=== PATIENT | female | born 1950 | race Caucasian/White ===

== ENCOUNTER 2017-07-02 16:04 | Emergency (ER) | payer OTHER ==
[~2017-07-02] VITALS: Ht 167.6 cm; Wt 90.3 kg
[~2017-07-02 16:04] MED LIST: ASPIR 8181 MG PO; GLIPIZIDE10 MG PO; LIPITOR80 MG PO; METFORMIN HCL1000 MG PO
[2017-07-02 16:14] VITALS: Ht 167.6 cm; Wt 90.3 kg
[2017-07-02 17:15] LABS: PLATELET COUNT 257 x10^3mcL (130-400); RED CELL DISTRIBUTION WIDTH 13.6 % (11.5-14.5)
[2017-07-02 17:21] LABS: CALCIUM 9.2 mg/dL (8.5-10.1); CARBON DIOXIDE 26.4 mmol/L (21-32)
[2017-07-02 17:25] LABS: ALBUMIN 3.5 g/dL (3.4-5.0); BILIRUBIN TOTAL 0.3 mg/dL (0.20-1.00); PHOSPHOROUS 3.9 mg/dL (2.5-4.9); TOTAL PROTEIN, SERUM 8.1 g/dL (6.4-8.2); URIC ACID 4.7 mg/dL (2.6-6.0)
[2017-07-02 18:32] VITALS: BP 160/89
== END 2017-07-02 18:32 | disposition home or self-care (01) ==
LOC: ED 16:04
PROVIDERS: Emergency Medicine
DX: G43.909 Migraine, unspecified, not intractable, without status migrainosus (principal); I10 Essential (primary) hypertension; E78.00 Pure hypercholesterolemia, unspecified; E11.65 Type 2 diabetes mellitus with hyperglycemia
CPT/HCPCS: 82962; J0780; J1885; J7030; Q0092

== ENCOUNTER 2019-04-14 17:54 | Inpatient (IN) | payer OTHER ==
[~2019-04-14] VITALS: Ht 175.3 cm; Wt 90.0 kg
[2019-04-14 17:58] VITALS: Ht 175.3 cm; Wt 90.0 kg
--- NOTE | 2019-04-14 18:13 | NUR ---
PT BIBA FOR FLU LIKE S/S. UPON ARRIVAL PT IS PALE, COOL AND DIAPHORETIC. PT IS ALERT AND ORIENTED WITH SLIGHT DELAY. PT ABLE TO SWALLOW WATER BUT THEN VOMITED A 10CC. PT STS THAT SHE HAS SOME CHEST TIGHTNESS THAT RADIATES TO HER LEFT SIDE, BUT DENIES ANY NUMBNESS. PT STS SHE HAS A DRY COUGH. DENIES ANY ABDOMINAL PAIN. PT PLACED ON FULL CM. PT STS SHE HAS BEEN HAVING BODY ACHES AND CHILLS. PT ARRIVED TO ED WITH 103.1 TEMP, COOLING MEASURES IMPLEMENTED. PT PLACED ON FULL CM. VSS. RESP E/U. PT PLACED IN UPRIGHT POSITION. WILL CONTINUE TO MONITOR.
--- NOTE | 2019-04-14 18:16 | NUR ---
LAB AT BEDSIDE.
[2019-04-14 18:37] LABS: BASOPHIL % 0.6 % (0-2); PLATELET COUNT 210 x10^3mcL (130-400); RED CELL DISTRIBUTION WIDTH 12.7 % (11.5-14.5)
[2019-04-14 18:38] LABS: UA SPECIFIC GRAVITY >=1.030 (1.005-1.035); microscopic required? YES; urine erythrocyte TRACE (NEGATIVE)
[2019-04-14 18:39] LABS: CALCIUM 8.8 mg/dL (8.5-10.1); CARBON DIOXIDE 23.2 mmol/L (21-32); CREATININE SERUM 1.1 mg/dL (0.6-1.0); POTASSIUM SERUM 3.6 mmol/L (3.5-5.1)
[2019-04-14 18:44] LABS: TOTAL PROTEIN, SERUM 7.9 g/dL (6.4-8.2)
--- NOTE | 2019-04-14 18:49 | NUR ---
LAB AT BEDSIDE FOR BLOOD CULTURE COLLECTION.
--- NOTE | 2019-04-14 19:34 | NUR ---
PT MEDICATED PER EMAR ORDERS. PLEASE SEE ORDER. PT IS LAYING IN POSITION OF COMFORTY. CALL LIGHT IS WITHIN REACH. PT IS A/O X4. PT RESPS ARE E/U. PT RESPS ARE E/U. NO ACD NOTED
--- NOTE | 2019-04-14 19:34 | NUR ---
RECEIVED PT REPORT FROM PETR BRASWELL. I WILL NOW ASSUME PRIMARY CARE OF PT
--- NOTE | 2019-04-14 19:48 | NUR ---
REPORT GIVEN TO LARS BRASWELL TO ASSUME CARE OF PT.
--- NOTE | 2019-04-14 20:19 | NUR ---
PT DAUGHTER AT BEDSIDE VISITING WITH PT
--- NOTE | 2019-04-14 20:47 | NUR ---
PT DAUGHTER, KIM, LEFT HER CELL PHONE NUMBER TO BE CONTACTED ONCE PT IS ABLE TO D/C. [phone]
--- NOTE | 2019-04-14 21:17 | NUR ---
PT WHEELED TO CT VIA BLACK LY BY TEENAGE BABYSITTER
--- NOTE | 2019-04-14 21:45 | NUR ---
PT RETURNED FROM CT WITH NO INCIDENCE
--- NOTE | 2019-04-14 21:54 | NUR ---
PT WAS GIVEN A PILLOW AND REPOSITIONED IN ED [facility] FOR MAXIMUN COMFORT. PT IS A/O X4/ PT RESPS ARE E/U. NO ACD NOTED
--- NOTE | 2019-04-14 22:58 | NUR ---
PT MEDICATED PER EMAR ORDERS. PLEASE SEE ORDER. PT IS RESTING IN POSITION OF COMFORT IN ED GURNEY. PT HAS CALL LIGHT WITHIN REACH. PT IS IN CLEAR VIEW OF THE NURSES STATION. PT IS A/O X4. PT RESPS ARE E/U. PT DENIES ANY DIZZINESS OR NAUSEA. WILL CONTINUE TO MONITOR
--- NOTE | 2019-04-14 23:53 | NUR ---
PT LAYING IN POSITION OF COMFORT. NO ACUTE DSITERSS NOTED AT THIS TME.
--- NOTE | 2019-04-15 01:01 | NUR ---
CALLED AND SPOKE WITH PTS DAUGHTER KIM THAT THE PT WILL BE DISCHARGED. SHE WILL BE HERE SHORTLY TO BOOTH CASHIER THE PT AND TAKE HER HOME
--- NOTE | 2019-04-15 01:31 | NUR ---
PT NOW RESTING IN HIGH FOWLERS POSITION IN ED [facility]. PT IS A/O X4. PT RESPS ARE E/U. NO ACD NOTED
--- NOTE | 2019-04-15 01:41 | NUR ---
TOOK PT VITAL SIGNS. PT TEMPTERATURE IS ELEVATED TO 102.3. DR ROBLERO MADE AWARE
--- NOTE | 2019-04-15 01:53 | NUR ---
20G IV IN LEFT AC THAT WAS PLACED BY PETR BRASWELL WAS D/C AT 0139. ANGIOCATH INTACT.
[2019-04-15] MEDS ORDERED: VITAMIN D32000 I2 (01:55)
[2019-04-15] MEDS ORDERED: JANUVIA100 M1 (01:55)
[2019-04-15] MEDS ORDERED: IMITREX50 MG (01:55)
[2019-04-15] MEDS ORDERED: SULFAMETHOXAZOL1 TA3 (01:56)
[2019-04-15] MEDS ORDERED: ZESTRIL5 MG (01:56)
[2019-04-15] MEDS ORDERED: SIMVASTATIN20 M1 (01:56)
--- NOTE | 2019-04-15 01:57 | NUR ---
SPOKE WITH MARS FROM [employer]. PER MARS PT IS ELIGIBLE FOR OBSERVATION BUT IF PT MEETS SEPTIC CRITERIA PT WILL BE CHANGED TO INPATIENT
--- NOTE | 2019-04-15 03:12 | NUR ---
PT REOPRT GIVEN TO DAWSON BRASWELL ON MED SURG FLOOR TO ASSUME PRIMARY CARE OF PT.
--- NOTE | 2019-04-15 03:20 | NUR ---
PT RECEIVED FROM ED VIA WHEELCHAIR ACCOMPANIED BY TECH. PT A/O X4, ABLE TO MAKE NEEDS KNOWN. MED-SURG, DENIES ANY CP/PRESSURE. PULSES PALPABLE, NO EDEMA PRESENT. BREATHING IS EVEN AND UNLABORED ON RA, NO RESP DISTRESS NOTED. ABD SOFT AND ROUND, DENIES N/V. VOIDS FREELY, BRP. GENERALIZED WEAKNESS. SKIN IS WARM AND DRY, INTACT. PT DENIES HAVING ANY PAIN AT THIS TIME. SL TO LAC, INTACT. ORIENTED PT TO ROOM AND CALL LIGHT. BED IN LOWEST SETTING, SIDE RAILS UP X2, CALL LIGHT WITHIN REACH. WILL CONT TO MONITOR.
--- NOTE | 2019-04-15 03:24 | NUR ---
PT WHEELED UPSTAIRS TO MEDSUR FLOOR VIA ED WHEELCHAIR BY BRIAN GUZMÁN
[2019-04-15 03:34] VITALS: BP 130/56
--- NOTE | 2019-04-15 07:30 | NUR ---
RECEIVED HAND OFF REPORT AT THIS TIME. PATIENT AWAKE AND ALERT AT THIS TIME. NO COMPLAINTS OF PAIN. INFORMED PATIENT OF NPO STATUS DUE TO PRESENTING DIAGNOSIS AT THIS TIME. ICE CHIPS GIVEN AND ORAL HYDRATION. WILL CONTINUE TO MONITOR
--- NOTE | 2019-04-15 07:49 | NUR ---
PT SLEPT WELL THROUGHOUT THE EVENING. BREATHING IS EVEN AND UNLABORED, NO RESP DISTRESS NOTED. PT DENIES HAVING ANY PAIN AT THIS TIME. IV TO LAC, INTACT. NO ACUTE CHANGES ENCOUNTERED DURING SHIFT. ALL NEEDS MET AND ANTICIPATED. CALL LIGHT WITHIN REACH. CONT OF CARE ENDORSED TO AM NURSE.
[2019-04-15 08:55] VITALS: BP 132/64
--- NOTE | 2019-04-15 09:47 | NUR ---
DRS ROUNDED ON PATIENT. CHANGED DIET TO CLEAR LIQUID. NO GI CONSULT AT [facility] TIME. INFORMED PATIENT OF PLAN OF CARE AND NEED FOR ANTIBIOTICS AND BOWEL REST. WILL CONTROL PAIN WITH MEDICATION AND PROVIDE EDUCATION. NEW ORDER ENTERED FOR UDS BY DR MORA.
--- NOTE | 2019-04-15 11:20 | NUR ---
PATIENT ASSITED TO RESTROOM, GAIT STEADY. SITTING IN BEDSIDE CHAIR AT THIS TIME. NO PAIN REPORTED. INSTRUCTED TO COLLECT BOWEL MOVEMENT FOR LAB TESTS.
--- NOTE | 2019-04-15 13:10 | NUR ---
ADMINSITERED MEDICATION PER AUG. PATIENT DID NOT WANT BLOOD SUGAR CHECKED AT THIS TIME. WILL REASSESS NEEDED. FAMILY MEMEBERS AT BEDSIDE AT THIS TIME. CALL LIGHT WITHIN REACH
--- NOTE | 2019-04-15 15:28 | NUR ---
PATIENT SLEEPING AT THIS TIME. BREATHING REGULAR AND UNLABORED. NO DISTRESS NOTED
[2019-04-15 16:50] VITALS: BP 114/53
[2019-04-15 19:09] LABS: AMPHETAMINE QUAL UR NONE DETECTED (See below)
--- NOTE | 2019-04-15 19:15 | NUR ---
RECEIVED PT LAYING IN BED, NO ACUTE DISTRESS OBSERVED, DENIES PAIN OR DISCOMFORT AT THIS TIME. 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 MED-SURG, NO TELE, NO CP. PULSES PALPABLE AND EQUAL THROUGHOUT, NO EDEMA. BREATHING ON RA, EVEN AND UNLABORED, NO SOB OR DYSPNEA OBSERVED. ABD ROUND AND SOFT WITH ACTIVE BOWEL SOUNDS, DENIES N/V/D, C/O INTERMITTENT ABD PAIN, NONE AT THIS TIME. CLEAR LIQUID DIET, TOLERATING WELL. MILD GENERALIZED WEAKNESS, AMBULATORY AND ABLE TO REPOSITION SELF IN BED. IV TO LAC IN PLACE, DRY, PATENT, INTACT, AND INFUSING IVF WELL, NO S&S PHLEBITIS OR INFILTRATION NOTED. COMFORT AND SAFETY MEASURES IN PLACE. ALL NEEDS ASSESSED AND ATTENDED TO. CALL LIGHT WITHIN REACH. WILL CONTINUE TO MONITOR
[2019-04-15 20:28] VITALS: BP 134/67
[2019-04-16 05:36] VITALS: BP 125/60
--- NOTE | 2019-04-16 05:51 | NUR ---
NO SIGNIFICANT CHANGES TO REPORT, PT COMPLIED WITH NURSING CARE THROUGHOUT THE SHIFT WITH NO ACUTE EVENTS OVERNIGHT. PT LAYING LAYING IN BED, BREATHING EVEN AND UNLABORED, AROUSABLE TO VERBAL STIMULI. NO ACUTE DISTRESS OBSERVED. COMFORT AND SAFETY MEASURES MAINTAINED. ALL NEEDS ASSESSED AND ATTENDED TO. CALL LIGHT WITHIN REACH. WILL CONTINUE TO MONITOR AND ENDORSE CARE TO DAY SHIFT NURSE
[2019-04-16 06:43] LABS: PLATELET COUNT 149 x10^3mcL (130-400); RED CELL DISTRIBUTION WIDTH 12.8 % (11.5-14.5)
[2019-04-16 06:57] LABS: CALCIUM 8.4 mg/dL (8.5-10.1); CARBON DIOXIDE 25.4 mmol/L (21-32); CHLORIDE SERUM 105 mmol/L (98-107); CREATININE SERUM 0.9 mg/dL (0.6-1.0); GFR1 > 60 mL/min; GLUCOSE SERUM 145 mg/dL (74-106); MAGNESIUM 1.7 mg/dL (1.8-2.4); PHOSPHOROUS 2.1 mg/dL (2.5-4.9); POTASSIUM SERUM 3.2 mmol/L (3.5-5.1); SODIUM SERUM 138 mmol/L (136-145)
--- NOTE | 2019-04-16 07:30 | NUR ---
RECEIVED PT IN BED. ASSESSED AND DOCUMENTED. DENIES ANY PAIN. STABLE. SAFTEY PRECAUTIONS ARE IN PLACE. WILL MONITOR.
--- NOTE | 2019-04-16 08:30 | NUR ---
INFORMED PRODUCTION LABORER PURNIMA ABOUT K=3.2, MG=1.7 AND PHOS=2.1. PT IS STABLE.
[2019-04-16 09:10] VITALS: BP 118/59
--- NOTE | 2019-04-16 11:00 | NUR ---
PT RESTING IN BED COMFORTABLY. DENIES ANY PAIN. STABLE.
[2019-04-16 13:14] LABS: BAND NEUTROPHIL 7 % (0-10); BASOPHIL 0 % (0-2); MONOCYTE 9 % (0-7); SEGMENTED NEUTROPHILS 79 % (37-75); rbc morphology (normal/abnorm) ABNORMAL (NORMAL)
--- NOTE | 2019-04-16 14:00 | NUR ---
PT SITTING UP IN THE CHAIR. STABLE. DENIES PAIN.
--- NOTE | 2019-04-16 15:00 | NUR ---
PT SAID LAC IV SITE STARTING TO HAVE PAIN SLIGHTLY, REMOVED AND CATH IS INTACT. INSERT NEW IV TO RFA WITH GOOD BLOOD RETURN.
--- NOTE | 2019-04-16 16:00 | NUR ---
PT RESTING IN BED COMFORTABLY. AMBULATE WITH ASSIST. DENIES ANY PAIN. NO DIARRHEA. STABLE.
[2019-04-16 18:23] VITALS: BP 125/60
--- NOTE | 2019-04-16 19:10 | NUR ---
PT RESTING IN BED COMFORTABLY. STABLE. DENIES ANY PAIN. FAMILY AT BEDSIDE. GAVE REPORT TO MEDICAL GENETICIST NURSE.
--- NOTE | 2019-04-16 19:20 | NUR ---
RECEIVED PT IN BED ASLEEP BUT EASILY AROUSABLE. SHE IS ORIENTED X4. NO SOB ON ROOM AIR. BOWEL SOUNDS ACTIVE. SHE HAS NO C/O PAIN AT THIS TIME. NO C/O N/V. W/ IVF NS INFUSING AT 100 CC/HR VIA RTFA. CALL LIGHT W/IN REACH.
--- NOTE | 2019-04-16 20:54 | NUR ---
PT C/O HEADACHE 11/20. TYLENOL 650 MG PO GIVEN.
[2019-04-16 21:51] VITALS: BP 126/49
--- NOTE | 2019-04-17 05:04 | NUR ---
PT SLEPT THROUGH THE NIGHT. SHE WAS MEDICATED FOR HEADACHE X1. SHE HAD NO C/O ABDL PAIN. NO N/V. IVF NS INFUSING WELL AT 100 CC/HR VIA RTFA. ALL NEEDS ATTENDED TO.
[2019-04-17 06:05] VITALS: BP 155/66
[2019-04-17 07:07] LABS: PLATELET COUNT 151 x10^3mcL (130-400); RED CELL DISTRIBUTION WIDTH 14.3 % (11.5-14.5)
[2019-04-17 07:09] LABS: BASOPHIL % 0 % (0-2)
[2019-04-17 07:22] LABS: CALCIUM 8.1 mg/dL (8.5-10.1); CARBON DIOXIDE 21.5 mmol/L (21-32); CHLORIDE SERUM 107 mmol/L (98-107); CREATININE SERUM 0.7 mg/dL (0.6-1.0); GFR1 > 60 mL/min; GLUCOSE SERUM 150 mg/dL (74-106); POTASSIUM SERUM 3.5 mmol/L (3.5-5.1); SODIUM SERUM 139 mmol/L (136-145)
--- NOTE | 2019-04-17 07:40 | NUR ---
RCEIVED PATIENT RESTING IN BED, NO ACUTE DISTRESS NOTED. PATIENT DENIES PAIN. DENIES NAUSEA & VOMITTING. LUNG SOUNDS CTA, DENIES SOB. PATIENT AMBULATORY WITH NO ASSIST. NS IV INFUSING TO TO RFA AT 100ML/HR, IV SITE CDI & PATENT. CALL LIGHT WITHIN REACH, BED IN LOW POSITION, WILL CONTINUE TO MONITOR.
[2019-04-17 08:51] VITALS: BP 173/64
--- NOTE | 2019-04-17 09:23 | NUR ---
PHYSICAL THERAPY AT BEDSIDE.
--- NOTE | 2019-04-17 10:40 | NUR ---
AIRPORT DUTY MANAGER KANU AT BEDSIDE, SPOKE WITH PATIENT REGARDING PLAN OF CARE. PATIENT WILL BE DISCHARGE HOME AFTER LUNCH, IF PATIENT IS ABLE TO TOLERATE MEAL. PATIENT UNDERSTANDS SHE WILL RECEIVE A PRESCRIPTION FOR ABXS. WILL CONTINUE TO MONITOR.
[2019-04-17] MEDS ORDERED: FLA500 PO (12:18)
[2019-04-17] MEDS ORDERED: CIPRO500 MG PO (12:18)
--- NOTE | 2019-04-17 13:30 | NUR ---
PATIENT FINISHED LUNCH AT THIS TIME, PATIENT DENIES NAUSEA/VOMITTING, PATIENT WAS ABLE TO TOLERATE MEAL. RELAY TESTER HELPER KANU MADE AWARE.
[2019-04-17 14:34] VITALS: BP 144/69; BP 173/64
--- NOTE | 2019-04-17 15:10 | NUR ---
PATIENT RECEIVED COPY OF DISCHARGE INSTRUCTION, PATIENT UNDERSTANDS AND AGREES WITH D/C INSTRUCTIONS & PLAN OF CARE, INCLUDING MEDICATIONS & FOLLOW UP WITH PCP. ALL QUESTIONS AND CONCERNS ADDRESSED. IV TO RFA REMOVED CATH INTACT. ARMBAND REMOVED. PATIENT TAKEN DOWN VIA WHEELCHAIR BY TAILINGS WORKER.
== END 2019-04-17 15:09 | disposition home or self-care (01) | DRG 871 ==
LOC: ED 17:54 → MU 04-15 02:02
PROVIDERS: ADMIT Internal Medicine
DX: A41.9 Sepsis, unspecified organism (principal); N17.0 Acute kidney failure with tubular necrosis; K57.32 Diverticulitis of large intestine without perforation or abscess without bleeding; E87.1 Hypo-osmolality and hyponatremia; E11.9 Type 2 diabetes mellitus without complications; I10 Essential (primary) hypertension; M47.896 Other spondylosis, lumbar region; Z68.22 Body mass index [BMI] 22.0-22.9, adult; Z79.82 Long term (current) use of aspirin; Z79.84 Long term (current) use of oral hypoglycemic drugs
CPT/HCPCS: 82962; 87046; 87046-59; 87804; 97116-GP; 97530-GP; G0378; J0696; J0744; J1815; J2270; J2405; J3490; J7030; J7060; Q0092; Q9967

== ENCOUNTER 2019-10-08 04:30 | Inpatient (IN) | payer OTHER ==
[~2019-10-08] VITALS: Ht 172.7 cm; Wt 86.6 kg
[~2019-10-08 04:30] MED LIST changes: +CIPRO500 MG PO; +FLA500 PO; +IMITREX50 MG; +JANUVIA100 M1; +SIMVASTATIN20 M1; +SULFAMETHOXAZOL1 TA3; +VITAMIN D32000 I2; +ZESTRIL5 MG
[2019-10-08 04:38] VITALS: Ht 172.7 cm; Wt 86.6 kg
[2019-10-08 05:30] LABS: CALCIUM 9.4 mg/dL (8.5-10.1); CARBON DIOXIDE 25.6 mmol/L (21-32); CREATININE SERUM 1.1 mg/dL (0.6-1.0); POTASSIUM SERUM 3.9 mmol/L (3.5-5.1)
[2019-10-08 05:34] LABS: BASOPHIL % 0.2 % (0-2); PLATELET COUNT 243 x10^3mcL (130-400); RED CELL DISTRIBUTION WIDTH 14.3 % (11.5-14.5)
[2019-10-08 05:37] LABS: BILIRUBIN TOTAL 0.22 mg/dL (0.20-1.00); TOTAL PROTEIN, SERUM 7.7 g/dL (6.4-8.2)
[2019-10-08 05:38] LABS: ALBUMIN 3.2 g/dL (3.4-5.0)
[2019-10-08] MEDS ORDERED: JANUVIA100 M1 PO (06:39)
[2019-10-08] MEDS ORDERED: [UNRECOGNIZED DRUG - CODE] PO (06:40)
[2019-10-08 08:30] VITALS: BP 149/54
[2019-10-08 11:52] VITALS: BP 127/64
[2019-10-08 16:08] VITALS: BP 153/71
[2019-10-08 21:19] VITALS: BP 129/70
[2019-10-09 05:57] VITALS: BP 146/69
[2019-10-09 07:31] LABS: BASOPHIL % 0.3 % (0-2); PLATELET COUNT 198 x10^3mcL (130-400); RED CELL DISTRIBUTION WIDTH 14.4 % (11.5-14.5)
[2019-10-09 07:54] VITALS: BP 147/87
[2019-10-09 08:00] LABS: CALCIUM 9.4 mg/dL (8.5-10.1); CARBON DIOXIDE 23.3 mmol/L (21-32); POTASSIUM SERUM 3.9 mmol/L (3.5-5.1)
[2019-10-09] MEDS ORDERED: LIPI20 PO (11:21)
[2019-10-09 12:03] VITALS: BP 150/71
[2019-10-09 13:04] VITALS: BP 150/71
== END 2019-10-09 14:44 | disposition home or self-care (01) | DRG 391 ==
LOC: ED 04:30 → MU 07:30
PROVIDERS: Emergency Medicine; ADMIT Family Medicine
DX: K57.32 Diverticulitis of large intestine without perforation or abscess without bleeding (principal); N17.0 Acute kidney failure with tubular necrosis; E44.0 Moderate protein-calorie malnutrition; E66.9 Obesity, unspecified; E78.00 Pure hypercholesterolemia, unspecified; E86.0 Dehydration; D72.829 Elevated white blood cell count, unspecified; I10 Essential (primary) hypertension; E78.5 Hyperlipidemia, unspecified; K59.00 Constipation, unspecified; E11.9 Type 2 diabetes mellitus without complications; Z86.73 Personal history of transient ischemic attack (TIA), and cerebral infarction without residual deficits; Z79.899 Other long term (current) drug therapy
CPT/HCPCS: 82962; C9113; G0378; J1885; J2270; J2405; J2543; J7030; Q0092

== ENCOUNTER 2020-04-11 21:55 | Emergency (ER) | payer OTHER ==
[~2020-04-11] VITALS: Ht 172.7 cm; Wt 85.0 kg
[~2020-04-11 21:55] MED LIST changes: +JANUVIA100 M1 PO; +LIPI20 PO; +[UNRECOGNIZED DRUG - CODE] PO
[2020-04-11 22:18] VITALS: Ht 172.7 cm; Wt 85.0 kg
[2020-04-11 23:14] LABS: BASOPHIL % 0.4 % (0-2); PLATELET COUNT 259 x10^3mcL (130-400); RED CELL DISTRIBUTION WIDTH 13.8 % (11.5-14.5)
[2020-04-11 23:24] LABS: CALCIUM 9.8 mg/dL (8.5-10.1); CARBON DIOXIDE 28.2 mmol/L (21-32); POTASSIUM SERUM 3.8 mmol/L (3.5-5.1)
[2020-04-11 23:28] LABS: ALBUMIN 3.5 g/dL (3.4-5.0); BILIRUBIN TOTAL 0.5 mg/dL (0.20-1.00)
[2020-04-11 23:31] LABS: TOTAL PROTEIN, SERUM 8.3 g/dL (6.4-8.2)
[2020-04-12 00:54] VITALS: BP 146/55
== END 2020-04-12 00:54 | disposition home or self-care (01) ==
LOC: ED 21:55
PROVIDERS: Emergency Medicine
DX: K57.92 Diverticulitis of intestine, part unspecified, without perforation or abscess without bleeding (principal); I10 Essential (primary) hypertension; E11.9 Type 2 diabetes mellitus without complications; E78.00 Pure hypercholesterolemia, unspecified
CPT/HCPCS: Q0092